=== PATIENT | female | born 1970 | race Caucasian/White ===

== ENCOUNTER → 2017-08-15 11:44 | Outpatient (CLI) | payer BC, MEDICARE, SELFPAY ==
--- NOTE | 2017-08-15 11:51 | BI_ITS ---
MAMMOGRAPHY - BILATERAL SCREENING REASON FOR EXAM: Female, 47 years old. Routine annual screening examination. PERTINENT HISTORY: Non-contributory. TECHNIQUE: Digital bilateral breast kusum (3D mammographic acquisition) in the CC and MLO projections. 2-D mediolateral oblique (MLO) and craniocaudad (CC) views of both breasts were obtained. CAD: Full Field Digital Mammography with Computer Added Detection was performed. COMPARISON: No comparison mammograms available at this time. If any prior films become available, an addendum to this report can be generated. FINDINGS: Breast Composition: There are scattered areas of fibroglandular density. There are no dominant masses or suspicious calcifications. Small bilateral benign appearing axillary lymph nodes. No other significant abnormalities are identified. BI/SCREENING MAMM (CAD), BILAT IMPRESSION: Negative screening mammogram. Yearly followup mammogram recommended. (A) ASSESSMENT CATEGORY: BIRADS Category 2: Benign. A letter regarding these results will be sent to the patient by the facility within 30 days. Approximately 10% of breast cancers are not detected by mammography. A normal mammogram should not delay biopsy of a clinically suspicious abnormality. [id number] Electronically Signed: Omar Cox MD at 14:32 EDT Tel [phone], Service support ,
== END ==
DX: Z12.31 Encounter for screening mammogram for malignant neoplasm of breast (principal)
CPT/HCPCS: 77063; 77067

== ENCOUNTER 2020-10-08 21:46 | Emergency (ER) | payer MEDICARE, SELFPAY ==
[2020-10-08 21:47] VITALS: BP 161/94; PULSE 59; RESP 16; TEMP 36.6; O2SAT 100; BMI 39.0
[2020-10-08 22:09] VITALS: BP 168/77; PULSE 60; PULSE 61; RESP 15; RESP 21; TEMP 36.6; O2SAT 100
--- NOTE | 2020-10-08 22:10 | EKG12_ITS ---
Test Reason : CP Blood Pressure : / mmHG Vent. Rate : 053 BPM Atrial Rate : 053 BPM P-R Int : 136 ms QRS Dur : 088 ms QT Int : 432 ms P-R-T Axes : 023 049 021 degrees QTc Int : 405 ms Sinus bradycardia Otherwise normal ECG Confirmed by PARDEEP PARMAR, SHANI ([id number]), editor magazine NIRMAL PINA ([id number]) on 10/11/2020 8:57:36 AM Referred By: TRACY Confirmed By:SHANI ROBERTO MD
--- NOTE | 2020-10-08 22:10 | CT_ITS ---
INDICATION: diffuse abd pain, n/v/d EXAMINATION: CT Abdomen And Pelvis W/ Contrast Injection TECHNIQUE: Helically acquired images were obtained of the abdomen and pelvis after IV contrast. A radiation dose optimization technique was used for this scan. IV Contrast dosage and agent: IV 100mL [id number]-300 Oral contrast: None. COMPARISON: None. FINDINGS: Visualized lung bases: Unremarkable Liver: Unremarkable Gallbladder: Unremarkable Spleen: Unremarkable Pancreas: Unremarkable Adrenal Glands: Unremarkable Kidneys: Unremarkable Vasculature: Unremarkable GI Tract: Unremarkable Lymphadenopathy: None Peritoneum: No ascites. Bladder: Unremarkable Reproductive organs: Unremarkable Bones/Soft tissues: Mild scattered degenerative changes of the visualized spine. CT/Abdomen/Pelvis W IV Cont ONLY IMPRESSION: No acute abnormalities in the abdomen or pelvis. Electronically Signed: Chris Lares MD at 23:15 EDT Tel , Service support ,
--- NOTE | 2020-10-08 22:11 | ED.VIS.GI ---
HPI HPI - GI History of Present Illness Chief Complaint: Chest Pain Informant: patient Abdominal Pain/Flank Pain Onset: Today Context: - (awoke w/ sx) Timing: Continuous Quality: - (pressure) Location: Epigastric (cross upper abd) Current Severity: Severe Maximum Severity: Severe Worsened by: Food (because it makes me vomit) Relieved by: Nothing (tried no meds except an Ativan) Nausea/Vomiting/Emesis GI Symptom: Positive for Nausea and Vomiting Onset: Today Quality: Positive for Nonbilious; Negative for Blood streaks, Coffee ground and Hematemesis Severity: Severe Diarrhea/Melena/Hematochezia GI Symptom: Positive for Diarrhea; Negative for Hematochezia Onset: - (chronic, since last November) Stool Quality: Positive for Watery, Black and BRB per rectum (rarely, only when wipes); Negative for Mucous Severity: Moderate (6-10x per day since november) Associated Symptoms Associated Symptoms: Negative for Dysuria, Frequency, Hematuria and Urgency Narrative Narrative: Patient with chronic intermittent lower abdominal cramping and diarrhea for the last 10-11 months, states today the abdominal pain is different in upper, pressure, going up into her mid chest, and radiating straight into her back. Pain preceded the vomiting. Has a history of chronically. She is scheduled for a colonoscopy trouble stopping vomiting when she starts. This is why she states she took an Ativan, she has been feeling anxious and panicky all day because of all of this. The diarrhea is no different, actually a little less than it has been in 2 weeks to work-up all of the Prior abdominal symptoms. [facility] Medical History (Updated 10/09/20 @ 00:[address] Jack James MD) DM type 2 (diabetes mellitus, type 2) History of neck pain HLD (hyperlipidemia) HTN (hypertension) Home Medications loratadine 10 mg PO DAILY PRN PRN 01/08/17 [History Last Taken Unknown] lorazepam 1 mg PO DAILY PRN PRN 01/08/17 [History Last Taken 01/08/17] dicyclomine 20 mg PO Q4H PRN PRN #20 capsule 10/09/20 [Rx Last Taken Unknown] metoclopramide HCl 10 mg PO 4X/DAY PRN #20 tab 10/09/20 [Rx Last Taken Unknown] Allergy/AdvReac Type Severity Reaction Status Date / Time Penicillins [PCN] Allergy Hives Verified 10/08/20 21:50 esomeprazole [From Nexium] AdvReac Other Verified 10/08/20 21:50 Surgical History (Updated 10/08/20 @ 22:28 by Niels Joseph) History of bunionectomy History of foot operation History of removal of ovarian cyst History of tonsillectomy History of tubal ligation Social History Smoking Status: Current every day smoker tobacco type: e-cigarettes ROS ROS ED Constitutional Constitutional ED: Denies chills or fever(s) Eyes Eyes: Denies change in vision or diplopia ENT ENT ED: Denies rhinorrhea or sore throat Cardiovascular Cardiovascular: Denies chest pain or palpitations Respiratory/Chest Respiratory/Chest: Denies cough or dyspnea Gastrointestinal Gastrointestinal: Reports abdominal pain, diarrhea, nausea and vomiting Genitourinary Genitourinary ED: Denies dysuria or hematuria Musculoskeletal Musculoskeletal: Reports back pain; Denies neck pain Integumentary Denies abscess or rash Neurologic Neurologic: Reports headache(s); Denies paresthesias or weakness Psychiatric Psychiatric: Reports anxiety; Denies suicidal thoughts EXAM Physical Exam Const Vital Signs: 10/08/20 21:47 10/08/20 22:09 10/09/20 00:00 Temperature 97.8 F 97.8 F 98 F Temperature Source Temporal Temporal Temporal Pulse Rate 59 L 61 89 Respiratory Rate 16 21 H 15 Blood Pressure 161/94 H 168/77 H 152/74 H Blood Pressure Mean 116 107 100 Pulse Ox 100 100 99 Oxygen Delivery Method Room Air Room Air Room Air Positive well nourished, well developed and obese General Appearance ED: well developed and NAD Nutritional Appearance: obese HEENT Reports moist mucous membranes normocephalic and atraumatic Eyes PERRL and EOMs intact bilaterally Neck full ROM, no lymphadenopathy and supple Resp normal respiratory effort and clear to auscultation bilaterally Cardio regular rate, regular rhythm and no murmurs GI non-distended Auscultation: hypoactive bowel sounds Palpation: soft and tender other (diffusely except suprapubic); Negative for guarding or rigid Back/Spine no CVA tenderness General Back: other FROM Extremity normal to inspection General Extremety ED: Negative for edema, pulses abnormal or tenderness General Extremity: Negative for edema or pulses abnormal Neuro oriented x3, CN's II-XII intact bilaterally and no sensory deficits noted Sensorium / Orientation: awake and alert Motor Exam: strength 5/5 throughout Psych mental status grossly normal and thought process normal Mood & Affect: anxious Skin no rashes or lesions noted and no wounds Rashes: no rashes MDM MDM MDM Narrative Medical decision making narrative: Mild leukocytosis, CT obtained and it is normal. Patient was medicated and feels much better on reevaluation. She is reassured, advised to follow-up for colonoscopy, as her pain is likely GI in etiology, she is prescribed dicyclomine and Reglan to use as needed she is comfortable with that plan. Lab Data Attestation: I reviewed the patient's lab results. Labs: Laboratory Results - last 24 hr 10/08/20 10/08/20 10/08/20 22:00 22:00 23:05 WBC 13.5 H RBC 4.66 Hgb 14.6 Hct 43.6 MCV 93.6 MCH 31.3 MCHC 33.5 RDW Std Deviation 46.5 H RDW Coeff of Joseph 13.6 Plt Count 320 MPV 10.7 Immature Gran % (Auto) 0.700 Neut % (Auto) 89.2 H Lymph % (Auto) 8.4 L Sequoyah % (Auto) 1.6 Eos % (Auto) 0.0 Baso % (Auto) 0.1 Absolute Neuts (auto) 12.1 H Absolute Lymphs (auto) 1.13 Nucleated RBC % 0 Sodium 140 Potassium 3.3 L Chloride 107 Carbon Dioxide 22.0 Anion Gap 11 BUN 12 Creatinine 0.88 Estim Creat Clear Calc 68.82 Est GFR (MDRD) Af Amer 87 Est GFR (MDRD) Non-Af 72 BUN/Creatinine Ratio 13.6 Glucose 147 H Calcium 9.2 Total Bilirubin 0.30 AST 14 L ALT 21 Alkaline Phosphatase 62 Troponin I High Sens 8.7 Total Protein 7.8 Albumin 3.7 Globulin 4.1 Albumin/Globulin Ratio 0.9 Lipase 48 L Urine Color Yellow Urine Clarity Clear Urine pH 5.0 Ur Specific Baxter 1.020 Urine Protein 15 H Urine Glucose (UA) 100 H Urine Ketones 150 A* Urine Occult Blood 25 H Urine Nitrite Negative Urine Bilirubin Negative Urine Urobilinogen Normal Ur Leukocyte Esterase Negative Urine RBC 0-5 SEEN Urine WBC 0 SEEN Ur Squamous Epith Cells 0 SEEN Urine Bacteria 1+ Urine Mucus 2+ Radiography Diagnostic Testing: Radiology Impression Abdomen/Pelvis CT 10/08/20 22:10 IMPRESSION: No acute abnormalities in the abdomen or pelvis. Electronically Signed: Chris Lares MD at 23:15 EDT Tel , Service support , EKG Initial EKG: Attestation: I personally reviewed and interpreted this EKG as follows: Interpretation: Sinus Rhythm and No Acute Injury Pattern Comments: normal ekg Discharge Plan Triage Chief Complaint: Chest Pain ED Provider: Jack James Dx/Rx/DC Orders Clinical Impression: Acute upper abdominal pain, Chest pain, non-cardiac Instructions: Abdominal Pain Prescriptions: New dicyclomine 10 MG capsule 20 mg PO Q4H PRN PRN (Reason: abdominal discomfort) Qty: 20 RF: 0 metoclopramide HCl [metoclopramide HCl] 10 MG tablet 10 mg PO 4X/DAY PRN (Reason: nausea and vomiting) Qty: 20 RF: 0 No Action lorazepam 1 MG tablet 1 mg PO DAILY PRN PRN (Reason: Anxiety) RF: 0 loratadine 10 MG capsule 10 mg PO DAILY PRN PRN (Reason: Allergies) RF: 0 Primary Care Provider: Ginny Camacho Referrals: Ginny Camacho, [Primary Care Provider] - 3-5 Days if not improving Disposition Disposition: Home, Self Care
[2020-10-08 22:16] LABS: Absolute Lymphocyte Count 1.13 X10^3/uL (0.83-4.51); Absolute Neutrophil Count 12.1 X10^3/uL (2.0-7.7); Basophil# 0.02 X10^3/uL; Basophil% 0.1 % (0-1); Hematocrit 43.6 % (37-47); Hemoglobin 14.6 g/dL (12.0-15.0); Lymphocyte # 1.13 X10^3/ul (0.83-4.51); Lymphocyte % 8.4 % (19-41); Mean Corp Hgb Conc 33.5 g/dL (32-36); Mean Corpuscular Hgb 31.3 pg (27.0-32.0); Mean Corpuscular Volume 93.6 fL (81-99); Mean Platelet Vol. 10.7 fl (6.2-12.0); Monocyte# 0.21 X10^3/uL; Monocyte% 1.6 % (0-10); NRBC Flagged by Analyzer 0 % (0-5); Neutrophil # 12.05 X10^3/uL (2.7-7.7); Neutrophil % 89.2 % (47-70); Platelet Count 320 K/mm3 (150-450); RBC Distribution Width CV 13.6 % (11.6-14.6); RBC Distribution Width SD 46.5 fl (35.1-43.9); Red Blood Count 4.66 M/mm3 (4.2-5.4); White Blood Count 13.5 K/mm3 (4.4-11.0)
[2020-10-08] MEDS: 0.9% Normal Saline 1,000 ML 1000 ML IV (22:19)
[2020-10-08] MEDS: Metoclopramide 10 MG/2 ML Vial IV (22:20)
[2020-10-08] MEDS: Morphine 4 MG/ML Syringe IV (22:22)
[2020-10-08] MEDS: Dicyclomine 20 MG/2 ML Vial IM (22:22)
[2020-10-08 22:31] LABS: ALB/GLOB Ratio 0.9 RATIO (0.9-2.4); AST(SGOT) 14 U/L (15-37); Alanine Aminotransfer ALT/SGPT 21 U/L (13-56); Albumin, Serum 3.7 g/dL (3.2-5.0); Alkaline Phosphatase 62 U/L (45-117); Anion Gap 11 (5-15); BUN 12 mg/dL (7-18); BUN/Creat Ratio 13.6 RATIO (10-20); Calcium,Total 9.2 mg/dL (8.5-10.1); Chloride 107 mmol/L (98-107); Creatinine, Serum 0.88 mg/dL (0.55-1.02); EST Glomerular Filtration Rate 72 mL/min (>60); Est Glom Filt Rate - Afr Amer 87 mL/min (>60); Estimated Creatinine Clearance 68.82 ml/min; Globulin 4.1 g/dL (2.2-4.2); Glucose 147 mg/dL (74-106); Lipase 48 U/L (73-393); Potassium 3.3 mmol/L (3.5-5.1); Protein, Total 7.8 g/dL (6.4-8.2); Sodium Level 140 mmol/L (136-145); Troponin-I HS 8.7 pg/mL (3.0-53.7)
[2020-10-08 23:12] LABS: Squamous Epithelial Cells - UA 0 SEEN /hpf (5-10); White Blood Cells 0 SEEN /hpf (0-5)
[2020-10-08 23:13] LABS: Color, Urine Yellow (Yellow); Glucose, Dipstick 100 mg/dl (Normal); Leukocyte Esterase-Dipstick Negative /ul (Negative); Nitrite-Dipstick Negative (Negative); Occult Blood-Urine 25 /ul (Negative); Protein-Dipstick 15 mg/dl (Negative); Urine Bilirubin Dipstick Negative (Negative); Urine Clarity Clear (Clear); Urine Urobilinogen Normal (Normal)
[2020-10-08 23:21] LABS: Ketone-Dipstick 150 mg/dl (Negative)
[2020-10-09] VITALS: BP 152/74; PULSE 89; RESP 15; RESP 16; TEMP 36.6; O2SAT 99
[2020-10-09 00:03] LABS: Bacteria 1+ /hpf (None Seen); Mucous, Urine 2+ /hpf (<or=2+); Red Blood Cells-Urine 0-5 SEEN /hpf (0-5)
[2020-10-09] MEDS: Ketorolac 30 MG/ML Syringe IV (01:40)
[2020-10-09] MEDS: traMADol 50 MG Tablet PO (01:41)
== END 2020-10-09 01:43 | disposition home or self-care (01) ==
PROVIDERS: Emergency Provider Emergency Medicine
DX: R10.13 Epigastric pain (principal); R07.89 Other chest pain; R11.2 Nausea with vomiting, unspecified; R19.7 Diarrhea, unspecified; E11.9 Type 2 diabetes mellitus without complications; I10 Essential (primary) hypertension; E78.5 Hyperlipidemia, unspecified; E66.9 Obesity, unspecified; Z79.899 Other long term (current) drug therapy; F17.290 Nicotine dependence, other tobacco product, uncomplicated
CPT/HCPCS: 74177; 80053; 81001; 83690; 84484; 85025; 93005; 96361; 96372; 96374; 96375; 99283; J7030; Q9967

== ENCOUNTER 2020-10-10 06:20 | Emergency (ER) | payer MEDICARE, MEDICAID, SELFPAY ==
[2020-10-10 06:22] VITALS: BP 159/88; PULSE 58; RESP 16; TEMP 35.8; O2SAT 96; BMI 40.0
--- NOTE | 2020-10-10 06:35 | ED.VIS.GI ---
HPI <Dr. Vladimir Chatterjee MD - Last Filed: 10/10/20 07:35> HPI - GI History of Present Illness Chief Complaint: Abd Pain Informant: patient and spouse/S.O. Abdominal Pain/Flank Pain Onset: Yesterday Context: Sudden Onset Timing: Continuous and Waxes and wanes Quality: Aching and Sharp Location: Epigastric Current Severity: Severe Maximum Severity: Severe Worsened by: Nothing Relieved by: Nothing Nausea/Vomiting/Emesis GI Symptom: Positive for Nausea (With dry heaves) Onset: Yesterday Diarrhea/Melena/Hematochezia GI Symptom: Negative for Diarrhea, Melena and Hematochezia Associated Symptoms Associated Symptoms: Negative for Dysuria, Frequency, Hematuria and Urgency Narrative Narrative: Patient is a middle-aged woman who has history of diarrhea and chronic lower abdominal pain who was seen Saturday morning for upper abdominal pain. She presents now because of nausea with dry heaves. She has history of anxiety and is treated with Ativan. She denies intolerance to greasy or fried foods. She denies history of cholelithiasis or pancreatitis. There is no family history of cholelithiasis. She denies cardiac or respiratory symptoms. She states the pain does radiate through to her back. She denies black or maroon-colored stool. She denies dysuria, frequency, urgency or hematuria. She denies history of renal ureterolithiasis. She apparently had chicken noodle soup yesterday. Nothing specific makes the pain worse. She states nothing makes the pain better. She is not aware of any precipitating factor. H&P from prior visit was read. Patient's work-up was remarkable for slightly elevated white count otherwise unremarkable. She does vape. She does smoke marijuana on a regular basis. Prior similar symptoms: Yes Recent Illness/Hospitalization: Yes [facility] <Dr. Vladimir Chatterjee MD - Last Filed: 10/10/20 07:35> [facility] Medical History DM type 2 (diabetes mellitus, type 2) History of neck pain HLD (hyperlipidemia) HTN (hypertension) Home Medications loratadine 10 mg PO DAILY PRN PRN 01/08/17 [History Last Taken Unknown] lorazepam 1 mg PO DAILY PRN PRN 01/08/17 [History Last Taken 01/08/17] dicyclomine 20 mg PO Q4H PRN PRN #20 capsule 10/09/20 [Rx Last Taken Unknown] metoclopramide HCl 10 mg PO 4X/DAY PRN #20 tab 10/09/20 [Rx Last Taken Unknown] Allergy/AdvReac Type Severity Reaction Status Date / Time Penicillins [PCN] Allergy Hives Verified 10/10/20 06:20 esomeprazole [From Nexium] AdvReac Other Verified 10/10/20 06:20 Surgical History History of bunionectomy History of foot operation History of removal of ovarian cyst History of tonsillectomy History of tubal ligation Social History (Updated 10/10/20 @ 06:[address] Vladimir Chatterjee MD) household members: significant other Smoking Status: Current every day smoker tobacco type: e-cigarettes alcohol intake: current alcohol intake frequency: holidays/special occasions only substance use type: marijuana ROS <Dr. Vladimir Chatterjee MD - Last Filed: 10/10/20 07:35> ROS ED Constitutional Constitutional ED: Denies chills, fever(s), subjective, sweats or weight loss ENT ENT ED: Denies ear pain, rhinorrhea or sore throat Cardiovascular Cardiovascular: Denies chest pain, palpitations or racing heartbeat Respiratory/Chest Respiratory/Chest: Reports cough and other Details: Coughing occurs after she dry heaves ; Denies dyspnea, dyspnea on exertion or sputum Gastrointestinal Gastrointestinal: Reports abdominal pain and nausea; Denies constipation, diarrhea or melena Genitourinary Genitourinary ED: Denies dysuria, hematuria or urinary frequency Musculoskeletal Musculoskeletal: Reports back pain and other Details: Pain is midline and deviates from the epigastrium. ; Denies arthralgias, myalgias or neck pain Integumentary Denies rash Neurologic Neurologic: Denies headache(s), paresthesias or weakness Endocrine Endocrinology: Denies polydipsia, polyphagia or polyuria Hematologic/Lymphatic Hematologic/Lymphatic: Denies easy bruising EXAM <Dr. Vladimir Chatterjee MD - Last Filed: 10/10/20 07:35> Physical Exam Const Vital Signs: 10/10/20 06:22 10/10/20 08:42 Temperature 96.5 F L Temperature Source Oral Pulse Rate 58 L 63 Respiratory Rate 16 14 Blood Pressure 159/88 H 151/78 H Blood Pressure Mean 111 102 Pulse Ox 96 99 Oxygen Delivery Method Room Air Nasal Cannula Oxygen Flow Rate (L/min) 4 Positive well nourished, well developed and obese General Appearance ED: well developed, pallor and other Patient begins to gag and dry heave then coughs. Nutritional Appearance: obese HEENT Reports moist mucous membranes normocephalic and atraumatic Eyes PERRL and EOMs intact bilaterally General Eye ED: Negative for pale conjunctiva or scleral icterus Neck no lymphadenopathy, supple and no JVD General: Negative for tenderness Resp normal respiratory effort and clear to auscultation bilaterally Cardio regular rate, regular rhythm, S1 normal heart sound, S2 normal heart sound and no murmurs GI non-distended and no masses; Negative for non-tender Auscultation: normoactive bowel sounds Palpation: soft and tender McBurney's point, Lugo's sign and other (Epigastric area.); Negative for guarding, rigid or rebound tenderness present Back/Spine no CVA tenderness Cervical Spine: Negative for cervical spine tenderness Thoracic Spine / Upper Back: Negative for thoracic spinal tenderness Extremity full ROM General Extremety ED: Yes edema General Extremity: edema Neuro CN's II-XII intact bilaterally Sensorium / Orientation: alert, oriented to person, oriented to place and oriented to time Psych mental status grossly normal Skin no wounds General Skin Exam: pallor; Negative for jaundice Lesions: no lesions Rashes: no rashes <Dr. Wu Drew DO - Last Filed: 10/10/20 09:52> Physical Exam Const Vital Signs: 10/10/20 06:22 10/10/20 08:42 Temperature 96.5 F L Temperature Source Oral Pulse Rate 58 L 63 Respiratory Rate 16 14 Blood Pressure 159/88 H 151/78 H Blood Pressure Mean 111 102 Pulse Ox 96 99 Oxygen Delivery Method Room Air Nasal Cannula Oxygen Flow Rate (L/min) 4 MDM <Dr. Vladimir Chatterjee MD - Last Filed: 10/10/20 07:35> [facility] MDM Narrative Medical decision making narrative: Patient has an inconsistent exam. With distraction she has either no pain or pain in different area. This may be anxiety related. This may represent peptic ulcer disease. CT of the abdomen was negative. Of note 25% of biliary disease is missed with a CAT scan. However, she has no tenderness in the right upper quadrant and has a negative Lugo sign. Patient was medicated with morphine and Zofran. Since she was imaged yesterday will not repeat today. Lab Data Attestation: I reviewed the patient's lab results. Lab results narrative: Count is elevated with no shift. White count was elevated yesterday. White count is not is elevated today. Hepatic and lipase are normal. Labs: Laboratory Results - last 24 hr 10/10/20 10/10/20 06:28 06:28 WBC 12.4 H RBC 4.62 Hgb 14.3 Hct 43.3 MCV 93.7 MCH 31.0 MCHC 33.0 RDW Std Deviation 47.9 H RDW Coeff of Joseph 13.8 Plt Count 326 MPV 10.8 Immature Gran % (Auto) 0.600 Neut % (Auto) 66.3 Lymph % (Auto) 26.4 Gregg % (Auto) 5.1 Eos % (Auto) 1.0 Baso % (Auto) 0.6 Absolute Neuts (auto) 8.2 H Absolute Lymphs (auto) 3.27 Nucleated RBC % 0 Total Bilirubin 0.30 Direct Bilirubin 0.08 AST 32 ALT 30 Alkaline Phosphatase 60 Troponin I High Sens 7.3 Total Protein 7.2 Albumin 3.7 Globulin 3.5 Lipase 82 Treatment and Re-Evaluation Comments:: She was informed of her laboratory results. Patient was informed that the cause of her pain is unknown. The epigastric pain and vomiting may be due to chronic marijuana use. She does admit to stress and anxiety. This may represent cyclic vomiting due to stress. The cyclic vomiting order set was ordered. Patient to be reevaluated and 2 to 4 hours. Case will be turned over to Dr. Drew. <Dr. Wu Drew, DO - Last Filed: 10/10/20 09:52> [facility] Narrative Medical decision making narrative: Patient signed out to me at 7 AM for monitoring. Patient had lab work drawn which showed a slight leukocytosis. Patient was reevaluated at 9 AM when she was sleeping comfortably. I spoke with her who stated that they had not filled the medications that were prescribed last time they were in the ED which was Reglan and dicyclomine. Patient at this time states that she is scared she might have to come back however she feels improved at this time. Patient was reevaluated again at 9:50 AM and is again sleeping comfortably. I feel she is safe to be discharged home. 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 Patient stable at discharge. Lab Data Attestation: I reviewed the patient's lab results. Labs: Laboratory Results - last 24 hr 10/10/20 10/10/20 06:28 06:28 WBC 12.4 H RBC 4.62 Hgb 14.3 Hct 43.3 MCV 93.7 MCH 31.0 MCHC 33.0 RDW Std Deviation 47.9 H RDW Coeff of Joseph 13.8 Plt Count 326 MPV 10.8 Immature Gran % (Auto) 0.600 Neut % (Auto) 66.3 Lymph % (Auto) 26.4 Gregg % (Auto) 5.1 Eos % (Auto) 1.0 Baso % (Auto) 0.6 Absolute Neuts (auto) 8.2 H Absolute Lymphs (auto) 3.27 Nucleated RBC % 0 Total Bilirubin 0.30 Direct Bilirubin 0.08 AST 32 ALT 30 Alkaline Phosphatase 60 Troponin I High Sens 7.3 Total Protein 7.2 Albumin 3.7 Globulin 3.5 Lipase 82 Discharge Plan Triage Chief Complaint: Abd Pain ED Provider: Wu Drew Dx/Rx/DC Orders Instructions: ED Abdominal Pain Unkn Cause Fem Prescriptions: No Action lorazepam 1 MG tablet 1 mg PO DAILY PRN PRN (Reason: Anxiety) RF: 0 loratadine 10 MG capsule 10 mg PO DAILY PRN PRN (Reason: Allergies) RF: 0 dicyclomine 10 MG capsule 20 mg PO Q4H PRN PRN (Reason: abdominal discomfort) Qty: 20 RF: 0 metoclopramide HCl [metoclopramide HCl] 10 MG tablet 10 mg PO 4X/DAY PRN (Reason: nausea and vomiting) Qty: 20 RF: 0 Primary Care Provider: Ginny Camacho Referrals: Ginny Camacho, [Primary Care Provider] - Disposition Disposition: Home, Self Care
[2020-10-10] MEDS: Ondansetron 4 MG/2 ML Vial IV ×2 (06:39→08:39)
[2020-10-10] MEDS: Morphine 4 MG/ML Syringe IV (06:39)
[2020-10-10 06:48] LABS: Absolute Lymphocyte Count 3.27 X10^3/uL (0.83-4.51); Absolute Neutrophil Count 8.2 X10^3/uL (2.0-7.7); Basophil# 0.07 X10^3/uL; Basophil% 0.6 % (0-1); Eosinophil# 0.12 X10^3/uL; Hematocrit 43.3 % (37-47); Hemoglobin 14.3 g/dL (12.0-15.0); Lymphocyte # 3.27 X10^3/ul (0.83-4.51); Lymphocyte % 26.4 % (19-41); Mean Corpuscular Volume 93.7 fL (81-99); Mean Platelet Vol. 10.8 fl (6.2-12.0); Monocyte# 0.63 X10^3/uL; Monocyte% 5.1 % (0-10); NRBC Flagged by Analyzer 0 % (0-5); Neutrophil # 8.23 X10^3/uL (2.7-7.7); Neutrophil % 66.3 % (47-70); Platelet Count 326 K/mm3 (150-450); RBC Distribution Width CV 13.8 % (11.6-14.6); RBC Distribution Width SD 47.9 fl (35.1-43.9); Red Blood Count 4.62 M/mm3 (4.2-5.4); White Blood Count 12.4 K/mm3 (4.4-11.0)
[2020-10-10 06:57] LABS: AST(SGOT) 32 U/L (15-37); Alanine Aminotransfer ALT/SGPT 30 U/L (13-56); Albumin, Serum 3.7 g/dL (3.2-5.0); Alkaline Phosphatase 60 U/L (45-117); Bilirubin, Direct 0.08 mg/dL (0.00-0.30); Globulin 3.5 g/dL (2.2-4.2); Lipase 82 U/L (73-393); Protein, Total 7.2 g/dL (6.4-8.2); Troponin-I HS 7.3 pg/mL (3.0-53.7)
[2020-10-10] MEDS: Famotidine 200 MG/20 ML MDV 20 MG in 0.9% Normal Saline (Pres. free 8 ML 300 MG IV (07:00)
[2020-10-10] MEDS: LORazepam 2 MG/ML Syringe 0.5 MG IV (08:39)
[2020-10-10 08:42] VITALS: BP 151/78; PULSE 63; RESP 14; O2SAT 99
[2020-10-10 09:57] VITALS: BP 158/89; PULSE 78; RESP 14; O2SAT 98
== END 2020-10-10 09:58 | disposition home or self-care (01) ==
PROVIDERS: Emergency Medicine; Emergency Provider Student in an Organized Health Care Education/Training Program
DX: R10.13 Epigastric pain (principal); R10.10 Upper abdominal pain, unspecified; R19.7 Diarrhea, unspecified; R10.30 Lower abdominal pain, unspecified; G89.29 Other chronic pain; E11.9 Type 2 diabetes mellitus without complications; I10 Essential (primary) hypertension; E78.5 Hyperlipidemia, unspecified; F17.290 Nicotine dependence, other tobacco product, uncomplicated; E66.9 Obesity, unspecified; Z79.899 Other long term (current) drug therapy
CPT/HCPCS: 80076; 83690; 84484; 85025; 96365; 96375; 96376; 99283; J7050; A4216; J2405; J3490

== ENCOUNTER 2021-04-19 16:40 | Emergency (ER) | payer MEDICARE, MEDICAID, SELFPAY ==
[2021-04-19 16:41] VITALS: BP 166/73; PULSE 70; RESP 16; TEMP 36.4; O2SAT 99; BMI 35.7
--- NOTE | 2021-04-19 16:50 | ED.RN ---
PT STATES I'M OUT OF HERE, NOT WAITING TO BE SEEN. AMBULATED OUT OF DEPT WITHOUT DIFFICULTY.
== END 2021-04-19 16:50 | disposition left against medical advice (07) ==
LOC: ED 18:17
DX: Z53.21 Procedure and treatment not carried out due to patient leaving prior to being seen by health care provider (principal)

== ENCOUNTER 2022-07-11 00:36 | Emergency (ER) | payer MEDICARE, MEDICAID, SELFPAY ==
[2022-07-11 00:40] VITALS: BP 158/89; PULSE 62; RESP 20; TEMP 36.6; O2SAT 99; BMI 36.6
--- NOTE | 2022-07-11 00:52 | ED.VIS.BACK ---
HPI History of Present Illness Chief Complaint: Back Informant: patient Onset/Context/Timing Onset: Yesterday Context: Gradual Onset Timing: Continuous Quality: Sharp and Aching Location: Lumbar, Buttock and Left Leg Worsened by: improves with Movement and Ambulation Relieved by: Nothing Associated Symptoms Associated Symptoms: Radiation to Left Leg and Abdominal Pain; Negative for Numbness, Tingling, Radiation to Right Leg, Fever, Dysuria, Unable to Ambulate, Unable to Transfer, Urinary Retention, Urinary Incontinence, Constipation or Fecal Incontinence Narrative Narrative: Patient presents with back pain that began yesterday. Patient states it came on gradually. Patient states it has been constant. Patient states the pain is over the lower lumbar area, worse on the left. Patient states pain radiates into her left buttock and left lower extremity. Patient denies any bowel or bladder changes. Patient denies any saddle anesthesia. Patient denies any dysuria or hematuria. Patient states her pain does radiate into her abdomen but denies any vomiting. Patient admits to some nausea. [facility] Medical History DM type 2 (diabetes mellitus, type 2) History of neck pain HLD (hyperlipidemia) HTN (hypertension) Home Medications cholecalciferol (vitamin D3) 10 mcg (400 unit) tablet (Vitamin D3) 07/11/22 [History Last Taken Unknown] naproxen 500 mg tablet (Naprosyn) 500 mg PO BID PRN pain #20 tabs 07/11/22 [Rx Last Taken Unknown] omega 8-qdt-xhe-fish oil 60 mg-90 mg-500 mg capsule (Fish Oil) cap PO 07/11/22 [History Last Taken Unknown] Allergy/AdvReac Type Severity Reaction Status Date / Time Penicillins [PCN] Allergy Hives Verified 04/19/21 16:43 esomeprazole [From Nexium] AdvReac Other Verified 04/19/21 16:43 Surgical History History of bunionectomy History of foot operation History of removal of ovarian cyst History of tonsillectomy History of tubal ligation Social History household members: significant other Smoking Status: Current every day smoker tobacco type: e-cigarettes alcohol intake: current alcohol intake frequency: holidays/special occasions only substance use type: marijuana ROS ROS ED Constitutional Constitutional ED: Reports chills; Denies fever(s) Eyes Eyes: Denies blurry vision or change in vision ENT ENT ED: Reports rhinorrhea; Denies sore throat Cardiovascular Cardiovascular: Denies chest pain or palpitations Respiratory/Chest Respiratory/Chest: Reports cough; Denies dyspnea Gastrointestinal Gastrointestinal: Reports abdominal pain and nausea; Denies vomiting Genitourinary Genitourinary ED: Denies dysuria or hematuria Musculoskeletal Musculoskeletal: Reports back pain; Denies neck pain Integumentary Denies abscess or rash Neurologic Neurologic: Reports headache(s); Denies weakness Allergic/Immunologic Allergic/Immunologic ED: Denies mouth swelling or urticaria EXAM Physical Exam Const Vital Signs: 07/11/22 00:40 Temperature 97.8 F Temperature Source Oral Pulse Rate 62 Respiratory Rate 20 H Blood Pressure 158/89 H Blood Pressure Mean 112 Pulse Ox 99 Oxygen Delivery Method Room Air Positive well nourished, well developed and obese General Appearance ED: well developed and NAD Nutritional Appearance: obese HEENT Reports moist mucous membranes Neck supple and no JVD GI normal to inspection, nondistended, normoactive bowel sounds, soft to palpation and non-tender Back/Spine normal to inspection Back/Spine Narrative: There is tenderness over the left lumbar paraspinal muscles. There is no midline tenderness. There is no bony crepitance or step-off. There is some mild left CVA tenderness. There is no abdominal tenderness. General Back: CVA tenderness left Lumbar Spine / Lower Back: ROM limited and straight leg raise negative bilaterally Extremity normal to inspection General Extremety ED: Negative for edema or tenderness General Extremity: Negative for edema Neuro oriented x3 and no sensory deficits noted Sensorium / Orientation: alert Motor Exam: strength 5/5 throughout Deep Tendon Reflexes: Rt Patellar (L4): 2+, Lt Patellar (L4): 2+, Rt Ankle (S1): 2+ and Lt Ankle (S1): 2+ Deep Tendon Reflexes Back: Rt Patellar (L4): 2+, Lt Patellar (L4): 2+, Rt Ankle (S1): 2+ and Lt Ankle (S1): 2+ MDM MDM MDM Narrative Medical decision making narrative: Differential diagnosis includes lumbosacral strain, ureteral calculus, and lumbar radiculopathy. Urinalysis will be obtained to assess for urinary tract infection and hematuria. CT scan of the flank will be obtained to assess for ureteral calculus. Lab Data Attestation: I reviewed the patient's lab results. Lab results narrative: Urinalysis was reviewed. There is no evidence of urinary tract infection or hematuria. Labs: Laboratory Results - last 24 hr 07/11/22 01:35 Urine Color Yellow Urine Clarity Clear Urine pH 5.0 Ur Specific [place] 1.025 Urine Protein 15 H Urine Glucose (UA) Normal Urine Ketones 15 H Urine Occult Blood 10 H Urine Nitrite Negative Urine Bilirubin Negative Urine Urobilinogen Normal Ur Leukocyte Esterase Negative Urine RBC 0 SEEN Urine WBC 0 SEEN Ur Squamous Epith Cells 0-5 SEEN Urine Bacteria RARE Urine Mucus 0 SEEN Radiography Diagnostic Testing: Clinical Impression(s) from Imaging Studies Abdomen/Pelvis CT 07/11/22 00:55 IMPRESSION: 1. Slight pericardial effusion. 2. No acute abdominal pelvic abnormality. Electronically Signed: Tay Stinson MD at 2:26 EDT , CT scan of the abdomen and pelvis was obtained. There is no acute abdominal or pelvic abnormality. There is no free air or free fluid. There is no evidence of ureteral calculus or hydronephrosis. There is a slight pericardial effusion. This was interpreted by the radiologist was also independently reviewed by myself. Treatment and Re-Evaluation Narrative: Patient was given a dose of morphine and Zofran here. Patient is feeling better on reevaluation. Patient was advised of her findings. Patient was given a prescription for Naprosyn. Patient was instructed to use ice to the area. Patient was instructed to follow-up with her primary care physician in 5 to 7 days. Patient understood and was agreeable with the plan. All questions were answered. Discharge Plan Triage Chief Complaint: Back Other Complaint: Lower Extremity Injury ED Provider: Ephraim Soto Dx/Rx/DC Orders Clinical Impression: Acute low back pain, Obesity (BMI 30-39.9) Instructions: ED Back Sprain/Strain Prescriptions: New naproxen [Naprosyn] 500 mg tablet 500 mg PO BID PRN (Reason: pain) Qty: 20 0RF No Action cholecalciferol (vitamin D3) [Vitamin D3] 10 mcg (400 unit) tablet omega 7-duv-gmk-fish oil [Fish Oil] 60-90-500 mg capsule PO Primary Care Provider: Ginny Camacho Referrals: Ginny Camacho DO [Primary Care Provider] - 5-7 Days Disposition Disposition: Home, Self Care
--- NOTE | 2022-07-11 00:55 | CT_ITS ---
EXAM: CT ABDOMEN AND PELVIS WITHOUT INTRAVENOUS CONTRAST CLINICAL INDICATION: Left flank pain TECHNIQUE: Helically acquired images were obtained of the abdomen and pelvis without intravenous contrast. This CT exam was performed using one or more of the following dose reduction techniques: automated exposure control, adjustment of the mA and/or kV according to patient size, and/or use of iterative reconstruction technique. This report was created using [employer] report generation technology. RADIATION DOSE: CTDIvol = 15.17 mGy, DLP = 796.00 mGy-cm. COMPARISON: 10/08/2020. FINDINGS: LOWER THORAX: Slight pericardial effusion. ABDOMEN: LIVER: Unremarkable. Homogeneous. GALLBLADDER AND BILE DUCTS: Unremarkable. No calcified gallstones. No gallbladder distention or wall edema. No intra- or extrahepatic biliary ductal dilation. PANCREAS: Unremarkable. No focal cystic mass. SPLEEN: Unremarkable. Normal size without focal cystic or solid mass. ADRENALS: Unremarkable. No nodules. KIDNEYS AND URETERS: Unremarkable. Normal renal size and position. No hydronephrosis. STOMACH AND BOWEL: Unremarkable. No stomach or bowel distention. No focal inflammatory change. PELVIS: APPENDIX: Normal appendix. BLADDER: Unremarkable. REPRODUCTIVE: Unremarkable as visualized. No mass. ABDOMEN and PELVIS: INTRAPERITONEAL SPACE: Unremarkable. No ascites or other fluid collection. No free air. BONES/JOINTS: Unremarkable. No suspicious lytic or blastic abnormality. SOFT TISSUES: Unremarkable. No discrete abdominal or pelvic wall hernia. VASCULATURE: Unremarkable. Abdominal aorta is non-dilated. LYMPH NODES: Unremarkable. No enlarged lymph nodes. CT/Abdomen/Pelvis without Cont IMPRESSION: 1. Slight pericardial effusion. 2. No acute abdominal pelvic abnormality. Electronically Signed: Tay Stinson MD at 2:26 EDT ,
[2022-07-11] MEDS: Morphine 4 MG/ML Syringe IV (01:12)
[2022-07-11] MEDS: Ondansetron 4 MG/2 ML Vial IV (01:12)
[2022-07-11 01:47] LABS: Mucous, Urine 0 SEEN /hpf (<or=2+); Red Blood Cells-Urine 0 SEEN /hpf (0-5); White Blood Cells 0 SEEN /hpf (0-5)
[2022-07-11 01:48] LABS: Color, Urine Yellow (Yellow); Glucose, Dipstick Normal (Normal); Ketone-Dipstick 15 mg/dl (Negative); Leukocyte Esterase-Dipstick Negative /ul (Negative); Nitrite-Dipstick Negative (Negative); Occult Blood-Urine 10 /ul (Negative); Protein-Dipstick 15 mg/dl (Negative); Specific Gravity, Urine 1.025 (1.002-1.030); Urine Bilirubin Dipstick Negative (Negative); Urine Clarity Clear (Clear); Urine Urobilinogen Normal (Normal)
[2022-07-11 01:54] LABS: Bacteria RARE /hpf (None Seen); Squamous Epithelial Cells - UA 0-5 SEEN /hpf (5-10)
[2022-07-11 02:50] VITALS: BP 120/82; PULSE 64; RESP 15; O2SAT 100
== END 2022-07-11 03:12 | disposition home or self-care (01) ==
PROVIDERS: Emergency Provider Emergency Medicine; Visit Provider Emergency Medicine
DX: M54.50 Low back pain, unspecified (principal); E11.9 Type 2 diabetes mellitus without complications; E66.9 Obesity, unspecified; R11.0 Nausea; I10 Essential (primary) hypertension; E78.5 Hyperlipidemia, unspecified; F17.290 Nicotine dependence, other tobacco product, uncomplicated; R51.9 Headache, unspecified
CPT/HCPCS: 74176; 81001; 96374; 96375; 99282; J2405

== ENCOUNTER → 2023-10-10 | Outpatient (CLI) | payer MEDICARE, MEDICAID, SELFPAY ==
--- NOTE | 2023-10-10 12:18 | RAD_ITS ---
STUDY: X-RAY - LEFT KNEE REASON FOR EXAM: Female, 53 years old. Pain. TECHNIQUE: 4 views of the left knee. COMPARISON: None. FINDINGS: Normal visualized distal femur. Normal visualized proximal tibia and fibula. Normal proximal tibiofibular articulation. There is no demonstrated fracture. Normal medial femorotibial compartment. Normal lateral femorotibial compartment. Normal patellofemoral articulation. There is a small joint effusion. The soft tissue structures are unremarkable. RAD/Knee 4 or More Views IMPRESSION: Small joint effusion. No demonstrated fracture. Electronically Signed: Ryan Rivas MD at 10:39 EDT ,
== END | disposition home or self-care (01) ==
LOC: RAD 12:13
PROVIDERS: Referring Provider Anesthesiology; Visit Provider Anesthesiology
DX: M25.562 Pain in left knee (principal)
CPT/HCPCS: 73564

== ENCOUNTER 2023-10-18 11:28 | Emergency (ER) | payer MEDICARE, MEDICAID, SELFPAY ==
[2023-10-18 11:28] VITALS: BP 178/88; PULSE 48; RESP 14; TEMP 36.8; O2SAT 98
[2023-10-18 11:31] VITALS: BMI 39.3
--- NOTE | 2023-10-18 11:43 | EDS_ITS ---
HPI <COLT Iniguez - Last Filed: 10/18/23 16:21> History of Present Illness Chief Complaint: Abd Pain Narrative Narrative: 53-year-old female with no significant past medical history states she has had vomiting since 6:30 AM this morning. She had not eaten prior to this so she is mostly spitting up phlegm and bile. The dry heaving is causing her abdominal wall muscles to feel sore but she does not have overt abdominal pain. She had 2-3 formed bowel movements today and denies melena or hematochezia. No fever or chills. She denies eating anything out of the ordinary yesterday. No recent alcohol use. She smokes marijuana daily. She states she gets vomiting episodes about once per year and is not sure why. She had a colonoscopy in 2020 showing microscopic colitis due to overuse of NSAIDs but she no longer takes these. Abdominal surgical history includes laparoscopic ovarian cyst removal and tubal ligation [facility] <COLT Iniguez - Last Filed: 10/18/23 16:21> [facility] Medical History DM type 2 (diabetes mellitus, type 2) History of neck pain HLD (hyperlipidemia) HTN (hypertension) Home Medications ?Medication ?Instructions ?Recorded ?Last Taken ?Type cholecalciferol (vitamin D3) 10 07/11/22 Unknown History mcg (400 unit) tablet (Vitamin D3) naproxen 500 mg tablet (Naprosyn) 500 mg PO BID PRN pain #20 tabs 07/11/22 Unknown Rx omega 9-wjn-ghu-fish oil 60 mg-90 cap PO 07/11/22 Unknown History mg-500 mg capsule (Fish Oil) dicyclomine 20 mg tablet 20 mg PO BID PRN abdominal pain 10/18/23 Unknown Rx #12 tabs promethazine 25 mg tablet 25 mg PO Q6H PRN nausea and 10/18/23 Unknown Rx vomiting #12 tabs Allergy/AdvReac Type Severity Reaction Status Date / Time Penicillins (PCN) Allergy Hives Verified 10/18/23 11:28 esomeprazole (From Nexium) AdvReac Other Verified 10/18/23 11:28 Surgical History History of bunionectomy History of foot operation History of removal of ovarian cyst History of tonsillectomy History of tubal ligation Social History household members: significant other Smoking Status: Current every day smoker tobacco type: e-cigarettes alcohol intake: current alcohol intake frequency: holidays/special occasions only substance use type: marijuana ROS <COLT Iniguez - Last Filed: 10/18/23 16:21> ROS ED ROS Narrative Constitutional: Negative for fever, chills, malaise. CVS: Negative for chest pain. Respiratory: Negative for shortness of breath. GI: Positive for nausea, vomiting. Negative for abdominal pain, diarrhea, constipation, melena, hematochezia. : Negative for dysuria, hematuria or frequency. EXAM <COLT Iniguez - Last Filed: 10/18/23 16:21> Physical Exam Narrative Exam Narrative: CONST: Patient sitting in no acute distress. EYES: Normal inspection. NECK: Normal inspection. RESP: No respiratory distress, CTAB. CVS: Regular rate and rhythm, no murmur, no gallop. ABD: Soft and nontender, no guarding or rebound, nondistended, no hepatosplenomegaly. SKIN: Color normal, no rash, warm, dry, intact. EXTREMITIES: Normal appearance, no pedal edema. NEURO: Alert and answering questions appropriately. PSYCH: Normal affect. Const Vital Signs: 10/18/23 11:28 10/18/23 13:28 10/18/23 15:00 Temperature 98.3 F Temperature Source Temporal Pulse Rate 48 L 48 L 57 L Respiratory Rate 14 18 20 H Blood Pressure 178/88 H 173/90 H 160/94 H Blood Pressure Mean 118 117 116 Pulse Ox 98 100 100 Oxygen Delivery Method Room Air Room Air Room Air 10/18/23 16:07 Temperature 98 F Temperature Source Pulse Rate 54 L Respiratory Rate 18 Blood Pressure 130/99 H Blood Pressure Mean 109 Pulse Ox 98 Oxygen Delivery Method <Dr. Vladimir Chatterjee MD - Last Filed: 10/18/23 17:00> Physical Exam Const Vital Signs: 10/18/23 11:28 10/18/23 13:28 10/18/23 15:00 Temperature 98.3 F Temperature Source Temporal Pulse Rate 48 L 48 L 57 L Respiratory Rate 14 18 20 H Blood Pressure 178/88 H 173/90 H 160/94 H Blood Pressure Mean 118 117 116 Pulse Ox 98 100 100 Oxygen Delivery Method Room Air Room Air Room Air 10/18/23 16:07 Temperature 98 F Temperature Source Pulse Rate 54 L Respiratory Rate 18 Blood Pressure 130/99 H Blood Pressure Mean 109 Pulse Ox 98 Oxygen Delivery Method [facility] <COLT Iniguez - Last Filed: 10/18/23 16:21> [facility] Narrative Medical decision making narrative: Patient presents with acute nausea and vomiting that started this morning. She has periumbilical discomfort that started after vomiting. She appears well and nontoxic. She is hypertensive with stable vital signs. She has a normal cardiopulmonary exam and soft, nontender abdomen with no peritoneal signs. Since she has a history of diabetes and is no longer on medications a BMP was checked and is overall unremarkable. Glucose 121. No evidence of MARV. After I V fluids and Zofran she felt better until she tried to drink some water and then vomited again so was ordered IV Reglan and Benadryl. She also complained of abdominal discomfort but on serial exams her abdomen is soft with no reproducible tenderness. After second antiemetic, Pepcid, and Bentyl she is feeling better easily tolerating water in the emergency department. I do not think a CT scan is indicated at this time. She states that oral Zofran does not work so I prescribed p.o. Phenergan and Bentyl, recommended a clear liquid diet transition to bland as tolerated, and discussed she should return if symptoms worsen. She was discharged in stable condition. I have personally performed a face to face assessment of the patient and have reviewed the MITUL Note. I performed a substantive portion of the visit including all aspects of the following. My leone findings include: History is remarkable for nausea and vomiting started this morning. She vomited 5 times. Denies blood or coffee-ground emesis. She states this happens about once a year. She has history of microscopic colitis found on colonoscopy. She has history of diabetes and hypertension. She states she is present on no meds. She was on medicine for GERD which she discontinued. She denies diarrhea. She denies black or maroon stool. She does complain of pain that is localized to the umbilicus. There is no radiation. She states she has chills all of a sudden and sweats. Exam is remarkable for elevated blood pressure and bradycardia. Patient was actively vomiting as I entered the room. Patient is flushed. HEENT is unremarkable. Lungs are clear to auscultation. Heart is regular. There is no murmur, gallop or rub. Abdomen is remarkable for minimal periumbilical pain. Is no guarding. No findings. There is no paraspinal megaly. Medical Decision Making because of her history of diabetes and hypertension will obtain BMP to assess glucose, anion gap, renal function. IV was established and will treat her nausea and vomiting with Zofran. Other additions or changes: [None] Lab Data Attestation: I reviewed the patient's lab results. Labs: Laboratory Results - last 24 hr 10/18/23 11:53 Sodium 141 Potassium 4.0 Chloride 110 H Carbon Dioxide 23.0 Anion Gap 8 BUN 11 Creatinine 0.88 Estim Creat Clear Calc 86.86 Est GFR (MDRD) Af Amer 86 Est GFR (MDRD) Non-Af 71 BUN/Creatinine Ratio 12.5 Glucose 121 H Calcium 9.5 <Dr. Vladimir Chatterjee MD - Last Filed: 10/18/23 17:00> [facility] Narrative Medical decision making narrative: Patient presents with acute nausea and vomiting that started this morning. She has periumbilical discomfort that started after vomiting. She appears well and nontoxic. She is hypertensive with stable vital signs. She has a normal cardiopulmonary exam and soft, nontender abdomen with no peritoneal signs. Since she has a history of diabetes and is no longer on medications a BMP was checked and is overall unremarkable. Glucose 121. No evidence of MARV. After IV fluids and Zofran she felt better until she tried to drink some water and then vomited again so was ordered IV Reglan and Benadryl. She also complained of abdominal discomfort but on serial exams her abdomen is soft with no reproducible tenderness. After second antiemetic, Pepcid, and Bentyl she is feeling better easily tolerating water in the emergency department. I do not think a CT scan is indicated at this time. She states that oral Zofran does not work so I prescribed p.o. Phenergan and Bentyl, recommended a clear liquid diet transition to bland as tolerated, and discussed she should return if symptoms worsen. She was discharged in stable condition. I have personally performed a face to face assessment of the patient and have reviewed the MITUL Note. I performed a substantive portion of the visit including all aspects of the following. My leone findings include: History is remarkable for nausea and vomiting started this morning. She vomited 5 times. Denies blood or coffee-ground emesis. She states this happens about once a year. She has history of microscopic colitis found on colonoscopy. She has history of diabetes and hypertension. She states she is present on no meds. She was on medicine for GERD which she discontinued. She denies diarrhea. She denies black or maroon stool. She does complain of pain that is localized to the umbilicus. There is no radiation. She states she has chills all of a sudden and sweats. Exam is remarkable for elevated blood pressure and bradycardia. Patient was actively vomiting as I entered the room. Patient is flushed. HEENT is unremarkable. Lungs are clear to auscultation. Heart is regular. There is no murmur, gallop or rub. Abdomen is remarkable for minimal periumbilical pain. Is no guarding. No findings. There is no paraspinal megaly. Medical Decision Making because of her history of diabetes and hypertension will obtain BMP to assess glucose, anion gap, renal function. IV was established and will treat her nausea and vomiting with Zofran. Other additions or changes: Patient did pass p.o. challenge. She was discharged to home. Lab Data Labs: Laboratory Results - last 24 hr 10/18/23 11:53 Sodium 141 Potassium 4.0 Chloride 110 H Carbon Dioxide 23.0 Anion Gap 8 BUN 11 Creatinine 0.88 Estim Creat Clear Calc 86.86 Est GFR (MDRD) Af Amer 86 Est GFR (MDRD) Non-Af 71 BUN/Creatinine Ratio 12.5 Glucose 121 H Calcium 9.5 Treatment and Re-Evaluation :: I was informed at approximately 1538 that patient passed p.o. challenge. Plan is to discharge to home. Patient does not need imaging. Discharge Plan Triage Chief Complaint: Abd Pain ED Midlevel Provider: Annette Castorena ED Provider: Vladimir Chatterjee Dx/Rx/DC Orders Clinical Impression: Nausea and vomiting, Periumbilical abdominal pain, Acute dehydration, Bradycardia Instructions: ED Vomiting (Adult) Prescriptions: New promethazine 25 mg tablet 25 mg PO Q6H PRN (Reason: nausea and vomiting) Qty: 12 0RF dicyclomine 20 mg tablet 20 mg PO BID PRN (Reason: abdominal pain) Qty: 12 0RF No Action cholecalciferol (vitamin D3) [Vitamin D3] 10 mcg (400 unit) tablet omega 7-kts-ksl-fish oil [Fish Oil] 60-90-500 mg capsule PO naproxen [Naprosyn] 500 mg tablet 500 mg PO BID PRN (Reason: pain) Qty: 20 0RF Primary Care Provider: Care Physician,No Primary Referrals: Care Physician,No Primary [Primary Care Provider] - Activity Restrictions/Additional Instructions: Use the nausea medication as needed. Dicyclomine is for the abdominal discomfort and cramping. You can also take Tylenol. Drink clear fluids till the day and then gradually reintroduce a bland diet as her symptoms improve. Return to the ER if symptoms worsen. Print Language: Kittitian Disposition Disposition: Home, Self Care Discharge Date/Time: 10/18/23 16:07
[2023-10-18] MEDS: Ondansetron 4 MG/2 ML Vial IV (11:46)
[2023-10-18] MEDS: 0.9% Normal Saline (1000mL) 1,000 ML 999 ML IV (11:49)
[2023-10-18 12:22] LABS: Anion Gap 8 (5-15); BUN 11 mg/dL (7-18); BUN/Creat Ratio 12.5 RATIO (10-20); Calcium,Total 9.5 mg/dL (8.5-10.1); Chloride 110 mmol/L (98-107); Creatinine, Serum 0.88 mg/dL (0.55-1.02); EST Glomerular Filtration Rate 71 mL/min (>60); Est Glom Filt Rate - Afr Amer 86 mL/min (>60); Estimated Creatinine Clearance 86.86 ml/min; Glucose 121 mg/dL (74-106); Sodium Level 141 mmol/L (136-145)
[2023-10-18 13:28] VITALS: BP 173/90; PULSE 48; RESP 18; O2SAT 100
[2023-10-18] MEDS: DiphenhydrAMINE 50 MG/ML Syringe 25 MG IV (13:29)
[2023-10-18] MEDS: Metoclopramide 10 MG/2 ML Vial 5 MG IV (13:30)
[2023-10-18 15:00] VITALS: BP 160/94; PULSE 57; RESP 20; O2SAT 100
[2023-10-18] MEDS: Famotidine 200 MG/20 ML MDV 20 MG in 0.9% Normal Saline (Pres. free 8 ML 300 MG IV (15:32)
[2023-10-18] MEDS: Dicyclomine 10 MG Capsule 20 MG PO (15:32)
[2023-10-18 16:07] VITALS: BP 130/99; PULSE 54; RESP 18; TEMP 36.6; O2SAT 98
== END 2023-10-18 16:07 | disposition home or self-care (01) ==
PROVIDERS: Physician Assistant; Emergency Provider Emergency Medicine; Visit Provider Emergency Medicine
DX: R11.2 Nausea with vomiting, unspecified (principal); E11.9 Type 2 diabetes mellitus without complications; E86.0 Dehydration; R10.33 Periumbilical pain; R00.1 Bradycardia, unspecified; K21.9 Gastro-esophageal reflux disease without esophagitis; I10 Essential (primary) hypertension; E78.5 Hyperlipidemia, unspecified; Z79.899 Other long term (current) drug therapy; F17.290 Nicotine dependence, other tobacco product, uncomplicated
CPT/HCPCS: 80048; 96361; 96374; 96375; 99283; J7030; A4216; J2405; J3490

== ENCOUNTER 2023-11-01 09:30 | Outpatient (RCR) | payer MEDICARE, MEDICAID, SELFPAY ==
--- NOTE | 2023-09-30 09:50 | HP.PTEVAL_ITS ---
Patient's Visit Information Visit Information Visit Information: JULIUS SIDDIQUI is a 53 year old F referred to Physical Therapy by Dr. Marvin Carlos MD with a diagnosis of L hip pain, lumbar sponylosis. Date of Evaluation: 09/30/23 Physical Therapist: ANISH Hernandez Visit Plan Frequency: 1-2x /Week Duration: 4 Weeks Plan: Pt wants to have a home program for neutral spine core stability, L hip strength, LE strength, piriformis stretching. Pt has trouble getting to therapy due to transportation. Subjective Subjective: Pt reports that she went to pain management for L hip pain and pain into knee and down to the foot. She got a shot in the hip and it feels better but the knee is still painful and out side of the hip are painful. She has had back and neck pain for so many years that she is used to it. It has been 20 years since PT and when she felt better she quit doing PT. She has had x-rays from the neck to the LB. She had a CATSCAN from a year ago and Dr Carlos looked at those. He has ordered an MRI. She has no weakness in her L leg. She has some trouble lifting her L knee. She has no N&T in the L leg. She does not sleep well at night due to the pain. She can not take NSAIDS due to diarrhea. She has muscle relaxors and they help her sleep for 4 good hours. She has only been taking them as needed. She can do stairs but has to go slow because of the pain. Pain L hip pain: Pain Intensity (Out of 10): 5 L knee: Pain Intensity (Out of 10): 6 Objective Objective: Gait: Walks with decrease stride length and no trunk rotation Trunk AROM: flexion 100%, Ext 100%, SB B 75% B (increase pain B), Rotation 75% B LE MMT: B hip flex 4/5, knee ext 4/5, knee flex 4/5 all equal B (on the weaker side but equal) L hip abd 3+/5 (increase pain) and R 4-/5 Pt is able to do 3/4 normal ROM bridge with slight tenderness Patella DTR's 2+/3 B -SLR B Prone lying has pressure in LB Prone to RADHA X 5 (pressure in back at firs and then some pain into hip on 3 rd one) L piriformis is tighter than the R Balance/Special Test Scores Oswestry Low Back Score: 23 Goals Goal 1:: I HEP for neutral spine core stability and L hip and knee strength Goal Time Frame: 6-8 Weeks Goal 2:: Be able to sleep better without having as much back and hip pain Goal Time Frame: 6-8 Weeks Goal 3:: Be able to walk with bigger steps without hip and back pain Rehabilitation Potential Rehabilitation Potential: Good Anticipated Interventions Patient/Client Instruction: Educate patient on: Condition and Plan of Care For the Purpose of:: To decrease pain, To increase ROM, To improve nutrient delivery to tissue, To improve muscle performance and motor function, To improve ability to perform ADL's, To increase tolerance to activity/condition/position, To improve performance and independence with ADL's, To decrease level of supervision to perform tasks, To improve ability of physical actions for home/community/work/leisure, To improve gait and locomotor functions, To improve health of tissue, To decrease soft tissue restriction and To increase flexibilit y/ROM Therapeutic Exercise to Include: Strength training, Body mechanics, Postural training, Flexibilty training, Gait and locomotor training, Neuromotor development, Active ROM, Dynamic Lumbar Stabilization and Scapular Strength/Stabilization For the Purpose of:: To decrease pain, To increase ROM, To improve nutrient delivery to tissue, To improve muscle performance and motor function, To improve ability to perform ADL's, To increase tolerance to activity/condition/position, To improve performance and independence with ADL's, To decrease level of supervision to perform tasks, To improve ability of physical actions for home/community/work/leisure, To improve gait and locomotor functions and To increase flexibility/ROM Functional Training to Include: Gait training For the Purpose of:: To improve gait and locomotor functions Manual Therapy Techniques to Include: Passive ROM For the Purpose of:: To increase ROM and To increase flexibility/ROM Text: Thank you for the opportunity to evaluate your patient. For Medicare and Medicare HMO plans, please review the plan of care and approve it. It will need to be FAXED BACK to us at [phone] for Medicare purposes. For Medicare only, by signing this I certify the plan of care. Please let me know if there are questions or concerns regarding this plan of care. Physician Signature: ____Date:
== END 2023-11-01 19:00 | disposition home or self-care (01) ==
LOC: PT 09:30
PROVIDERS: Referring Provider Anesthesiology; Visit Provider Anesthesiology
DX: M47.22 Other spondylosis with radiculopathy, cervical region (principal); M47.816 Spondylosis without myelopathy or radiculopathy, lumbar region; M25.552 Pain in left hip
CPT/HCPCS: 97110; 97162

== ENCOUNTER → 2023-11-07 | Outpatient (CLI) | payer MEDICARE, MEDICAID, SELFPAY ==
--- NOTE | 2023-11-07 10:52 | MRI_ITS ---
ACR Level 3 findings have been noted. An addendum which confirms receipt of the report will follow. EXAM: MR PELVIS WITHOUT INTRAVENOUS CONTRAST CLINICAL INDICATION: L HIP PAIN TECHNIQUE: Multiplanar and multisequence MR images of the pelvis without intravenous contrast. COMPARISON: No relevant prior studies available. FINDINGS: ARTIFACTS: Motion artifact limits assessment. APPENDIX: No evidence of acute appendicitis. INTRAPERITONEAL SPACE: Unremarkable. No ascites or other fluid collection. BLADDER: Unremarkable. OVARIES: Left ovarian simple cyst measuring 2.4 cm. UTERUS/CERVIX: Unremarkable. No mass. Endometrial stripe is normal in thickness and appearance. BONES/JOINTS: There are marrow edema involving the posterolateral femoral head and neck as well as the acetabular roof could represent osteomyelitis. At least moderate left hip joint effusion with synovitis. Moderate to severe degenerative disc disease L5-S1. No suspicious lytic or blastic abnormality. SOFT TISSUES: Left iliopsoas fluid collection (3.9 x 3.1 cm) along the musculotendinous junction of the iliopsoas with edema extending down to the trochanteric attachment of the iliopsoas. No pelvic wall hernia. LYMPH NODES: Unremarkable. No enlarged lymph nodes. MRI/Pelvis (Routine) IMPRESSION: Left hip joint effusion with synovitis which can be seen with septic arthritis. Consider joint aspiration for definitive diagnosis if clinically concerned. There is associated iliopsoas bursitis which communicates with the left hip joint. Possible osteomyelitis involving the left acetabular roof and the femoral head. Electronically Signed: Orlando Short MD at 23:34 EDT ,
== END | disposition home or self-care (01) ==
LOC: MRI 10:48
PROVIDERS: Referring Provider Anesthesiology; Visit Provider Anesthesiology
DX: M25.552 Pain in left hip (principal)
CPT/HCPCS: 72195

== ENCOUNTER 2023-11-08 10:47 | Emergency (ER) | payer MEDICARE, MEDICAID, SELFPAY ==
[2023-11-08 10:47] VITALS: BP 157/95; PULSE 90; RESP 16; TEMP 36.6; O2SAT 100
[2023-11-08 11:08] VITALS: BMI 39.3
--- NOTE | 2023-11-08 11:18 | EKG12_ITS ---
Test Reason : PRE OP Blood Pressure : / mmHG Vent. Rate : 068 BPM Atrial Rate : 068 BPM P-R Int : 146 ms QRS Dur : 082 ms QT Int : 382 ms P-R-T Axes : 012 042 029 degrees QTc Int : 406 ms Normal sinus rhythm Normal ECG Confirmed by ALFRED PARMAR, DAVEY ([id number]), research editor TI MCGARRY ([id number]) on 11/12/2023 1:55:36 PM Referred By: JITENDRA Confirmed By:BARBARA SIMON MD
[2023-11-08 11:29] VITALS: O2SAT 96
[2023-11-08] MEDS: 0.9% Normal Saline (1000mL) 1,000 ML 150 ML IV (11:35)
[2023-11-08] MEDS: Ondansetron 4 MG/2 ML Vial IV (11:35)
[2023-11-08] MEDS: Morphine 4 MG/ML Syringe IV ×2 (11:36→16:08)
--- NOTE | 2023-11-08 11:40 | EDS_ITS ---
HPI History of Present Illness Chief Complaint: Lower Extremity Injury Informant: patient Onset/Context/Timing Onset: Today Narrative Narrative: Patient advised by pain management doctor to present to the emergency room secondary to concern for left hip infection. She reports left hip pain ongoing for several months. She denies any known injury. She had an MRI obtained yesterday that shows a left hip joint effusion with synovitis which can be seen with septic arthritis. There is also concern for possible osteomyelitis involving the left acetabular roof and femoral head. Patient denies having fever or chills. PFSH PFS Medical History HLD (hyperlipidemia) DM type 2 (diabetes mellitus, type 2) HTN (hypertension) History of neck pain Home Medications ?Medication ?Instructions ?Recorded ?Last Taken ?Type cholecalciferol (vitamin D3) 10 10 mcg PO DAILY 07/11/22 Unknown History mcg (400 unit) tablet (Vitamin D3) naproxen 500 mg tablet (Naprosyn) 500 mg PO BID PRN pain #20 tabs 07/11/22 Unknown Rx omega 1-kug-qqw-fish oil 60 mg-90 1 cap PO DAILY 07/11/22 Unknown History mg-500 mg capsule (Fish Oil) dicyclomine 20 mg tablet 20 mg PO BID PRN abdominal pain 10/18/23 Unknown Rx #12 tabs promethazine 25 mg tablet 25 mg PO Q6H PRN nausea and 10/18/23 Unknown Rx vomiting #12 tabs tizanidine 4 mg tablet 2 - 4 mg PO TID PRN PRN muscle 11/08/23 Unknown History spasticity Allergy/AdvReac Type Severity Reaction Status Date / Time Penicillins (PCN) Allergy Hives Verified 11/08/23 10:48 esomeprazole (From Nexium) AdvReac Other Verified 11/08/23 10:48 Surgical History History of tonsillectomy History of foot operation History of bunionectomy History of tubal ligation History of removal of ovarian cyst Social History household members: significant other Smoking Status: Former smoker alcohol intake: current alcohol intake frequency: holidays/special occasions only substance use type: marijuana ROS ROS ED Constitutional Constitutional ED: Denies chills or fever(s) Eyes Eyes: Denies discharge from eye(s) ENT ENT ED: Denies discharge from eye(s), rhinorrhea or sore throat Cardiovascular Cardiovascular: Denies chest pain Respiratory/Chest Respiratory/Chest: Denies cough or dyspnea Gastrointestinal Gastrointestinal: Denies abdominal pain, nausea or vomiting Musculoskeletal Musculoskeletal: Reports extremity pain; Denies back pain Integumentary Denies Abrasions or rash Neurologic Neurologic: Denies headache(s) Psychiatric Psychiatric: Denies anxiety or depression Allergic/Immunologic Allergic/Immunologic ED: Denies lip swelling or urticaria EXAM Physical Exam Const Vital Signs: 11/08/23 10:47 11/08/23 11:29 11/08/23 12:37 Temperature 98 F 98.6 F Temperature Source Temporal Oral Pulse Rate 90 74 Respiratory Rate 16 12 Blood Pressure 157/95 H 138/91 H Blood Pressure Mean 115 106 Pulse Ox 100 96 98 Oxygen Delivery Method Room Air Room Air Room Air 11/08/23 13:58 Temperature 97.3 F L Temperature Source Temporal Pulse Rate 60 Respiratory Rate 18 Blood Pressure 138/91 H Blood Pressure Mean 106 Pulse Ox 98 Oxygen Delivery Method Room Air Positive well nourished and well developed General Appearance ED: well developed HEENT Reports moist mucous membranes Eyes EOMs intact bilaterally Chest Wall inspection of chest normal and palpation of chest normal Resp normal respiratory effort and clear to auscultation bilaterally Cardio regular rate and regular rhythm GI non-tender Palpation: soft Extremity Extremity Narrative: Tenderness outpatient on anterior and lateral left hip. Most comfortable held in slight flexion. Good distal pulses. Neuro oriented x3 Neuro Narrative: Slow purposeful range of motion of the left hip. Psych Mood & Affect: anxious and tearful Skin no rashes or lesions noted MDM MDM MDM Narrative Medical decision making narrative: IV line established. Labwork obtained to evaluate for leukocytosis, anemia, and electrolyte derangement. Blood culture obtained. History & Record Review Discussion w/independent historian: Patient and Family Additional record(s) reviewed:: Prior outpatient record Lab Data Attestation: I reviewed the patient's lab results. Labs: Laboratory Results - last 24 hr 11/08/23 11/08/23 11:20 11:40 WBC 9.1 RBC 4.78 Hgb 14.7 Hct 43.8 MCV 91.6 MCH 30.8 MCHC 33.6 RDW Std Deviation 44.5 H RDW Coeff of Joseph 13.2 Plt Count 264 MPV 10.2 Immature Gran % (Auto) 0.400 Neut % (Auto) 75.4 H Lymph % (Auto) 16.3 L Hodgeman % (Auto) 5.0 Eos % (Auto) 2.2 Baso % (Auto) 0.7 Absolute Neuts (auto) 6.8 Absolute Lymphs (auto) 1.48 Nucleated RBC % 0 PT 13.0 INR 1.0 APTT 29.8 Sodium 136 Potassium 3.6 Chloride 105 Carbon Dioxide 25.0 Anion Gap 6 BUN 12 Creatinine 0.92 Estim Creat Clear Calc 83.08 Est GFR (MDRD) Af Amer 82 Est GFR (MDRD) Non-Af 67 BUN/Creatinine Ratio 13.0 Glucose 126 H Lactic Acid 1.2 Calcium 9.4 Total Bilirubin 0.70 AST 17 ALT 15 Alkaline Phosphatase 69 Total Protein 7.5 Albumin 3.6 Globulin 3.9 Albumin/Globulin Ratio 0.9 EKG Initial EKG: Attestation: I personally reviewed and interpreted this EKG as follows: Interpretation: Sinus Rhythm (Sinus at 68 with no acute ischemia.) Treatment and Re-Evaluation :: CBC was normal white count 9.1 with 75% neutrophils. Hemoglobin is 14.7. Coags unremarkable. Chemistry studies significant only for glucose of 126. LFTs are unremarkable. MRI from yesterday was reviewed. There is fluid in the left hip joint. There are changes concerning for osteomyelitis of the acetabular roof as well as the femoral head. Patient was sent to radiology for fluoroscopy guided aspiration of the left hip to send fluid for testing. No fluid was able to be withdrawn. Patient was then started on antibiotics, vancomycin and Rocephin. We do not have orthopedic coverage here today and this was discussed with the patient. Patient has been accepted in transfer at [facility] in [place]. Discharge Plan Triage Chief Complaint: Lower Extremity Injury ED Provider: Janelle Mckinley Dx/Rx/DC Orders Clinical Impression: Osteomyelitis Prescriptions: No Action cholecalciferol (vitamin D3) [Vitamin D3] 10 mcg (400 unit) tablet 10 mcg PO DAILY omega 3-syj-oew-fish oil [Fish Oil] 60-90-500 mg capsule 1 cap PO DAILY naproxen [Naprosyn] 500 mg tablet 500 mg PO BID PRN (Reason: pain) Qty: 20 0RF promethazine 25 mg tablet 25 mg PO Q6H PRN (Reason: nausea and vomiting) Qty: 12 0RF dicyclomine 20 mg tablet 20 mg PO BID PRN (Reason: abdominal pain) Qty: 12 0RF tizanidine 4 mg tablet 2 - 4 mg PO TID PRN PRN (Reason: muscle spasticity) Primary Care Provider: Care Physician,No Primary Referrals: Care Physician,No Primary [Primary Care Provider] - Print Language: Occitan Disposition Disposition: Acute Care Hospital Discharge Location: [facility]
[2023-11-08 11:45] LABS: Absolute Lymphocyte Count 1.48 X10^3/uL (0.83-4.51); Absolute Neutrophil Count 6.8 X10^3/uL (2.0-7.7); Basophil# 0.06 X10^3/uL; Basophil% 0.7 % (0-1); Eosinophils% 2.2 % (0-5); Hematocrit 43.8 % (37-47); Hemoglobin 14.7 g/dL (12.0-15.0); Lymphocyte # 1.48 X10^3/ul (0.83-4.51); Lymphocyte % 16.3 % (19-41); Mean Corp Hgb Conc 33.6 g/dL (32-36); Mean Corpuscular Hgb 30.8 pg (27.0-32.0); Mean Corpuscular Volume 91.6 fL (81-99); Mean Platelet Vol. 10.2 fl (6.2-12.0); Monocyte# 0.45 X10^3/uL; NRBC Flagged by Analyzer 0 % (0-5); Neutrophil # 6.84 X10^3/uL (2.7-7.7); Neutrophil % 75.4 % (47-70); Platelet Count 264 K/mm3 (150-450); RBC Distribution Width CV 13.2 % (11.6-14.6); RBC Distribution Width SD 44.5 fl (35.1-43.9); Red Blood Count 4.78 M/mm3 (4.2-5.4); White Blood Count 9.1 K/mm3 (4.4-11.0)
[2023-11-08 11:59] LABS: Partial Thromboplast Time 29.8 Seconds (24.1-36.2)
[2023-11-08 12:10] LABS: Lactic Acid 1.2 mmol/L (0.4-1.9)
[2023-11-08 12:11] LABS: ALB/GLOB Ratio 0.9 RATIO (0.9-2.4); AST(SGOT) 17 U/L (15-37); Alanine Aminotransfer ALT/SGPT 15 U/L (13-56); Albumin, Serum 3.6 g/dL (3.2-5.0); Alkaline Phosphatase 69 U/L (45-117); Anion Gap 6 (5-15); BUN 12 mg/dL (7-18); Calcium,Total 9.4 mg/dL (8.5-10.1); Chloride 105 mmol/L (98-107); Creatinine, Serum 0.92 mg/dL (0.55-1.02); EST Glomerular Filtration Rate 67 mL/min (>60); Est Glom Filt Rate - Afr Amer 82 mL/min (>60); Estimated Creatinine Clearance 83.08 ml/min; Globulin 3.9 g/dL (2.2-4.2); Glucose 126 mg/dL (74-106); Potassium 3.6 mmol/L (3.5-5.1); Protein, Total 7.5 g/dL (6.4-8.2); Sodium Level 136 mmol/L (136-145)
[2023-11-08 12:37] VITALS: BP 138/91; PULSE 74; RESP 12; TEMP 37; O2SAT 98
--- NOTE | 2023-11-08 13:30 | PCM.OP.PRO ---
Procedure Report Date of Procedure: 11/08/23 Assessment & Plan Assessment/Plan (1) Left hip pain: PLAN: PROCEDURE: Fluoroscopic guided left hip aspiration ORDERING PROVIDER: Dr. Janelle Luo INDICATION: Female, 53 years old. Fluid collection on MRI of left hip. PROVIDER: DOMINIK Ny FLUOROSCOPY TIME (if supplied): 1 minutes/26 seconds. 33.8 mGy CONSENT: The procedure as well as the benefits and possible complications including infection and bleeding were explained to the patient. Informed consent was obtained. TECHNIQUE: All elements of maximal sterile barrier technique followed. The patient was in the supine position. The overlying skin was prepped and draped in the usual sterile fashion. Following local anesthetic application and direct fluoroscopic guidance, a 22-gauge spinal needle was placed into the left hip joint. 10 cc of Isovue-300 was used for confirmation of needle guidance into the left hip joint. However, 0 cc of fluid was able to be aspirated. A dressing was placed on the aspiration site. The patient tolerated the procedure well. Fluid was sent to the laboratory for analysis. IMPRESSION: 1. Successful fluoroscopic guided needle placement in left hip joint for attempted aspiration. Procedures Radiology Radiology Xray Procedures: [id number] Inj Asp major Joint - Hip, Knee Multi Select Codes Radiology Rad Xray Procedures: [id number] Fluoroscopic guidance for needle placement
[2023-11-08 13:58] VITALS: BP 138/91; PULSE 60; RESP 18; TEMP 36.3; O2SAT 98
[2023-11-08] MEDS: Ceftriaxone 2 GM in 0.9% Normal Saline (50mL MB+) 50 ML IV (14:08)
[2023-11-08] MEDS: Lidocaine 2% (5ml sdv) 5 ML VIAL.MPF INFILT (14:11)
[2023-11-08] MEDS: Vancomycin HCl 1,500 MG in 0.9% Normal Saline (500mL Bag) 500 ML 250 MG IV (14:53)
[2023-11-08 16:00] VITALS: BP 135/79; O2SAT 94
[2023-11-08] MEDS: LORazepam 2 MG/ML Syringe 0.5 MG IV (16:23)
[2023-11-08 17:12] VITALS: BP 140/98; PULSE 66; RESP 18; TEMP 36.7; O2SAT 97
== END 2023-11-08 17:24 | disposition short-term general hospital (02) ==
PROVIDERS: Emergency Provider Emergency Medicine; Visit Provider Emergency Medicine
DX: E11.69 Type 2 diabetes mellitus with other specified complication (principal); M86.8X5 Other osteomyelitis, thigh; Z53.8 Procedure and treatment not carried out for other reasons; I10 Essential (primary) hypertension; E78.5 Hyperlipidemia, unspecified; Z79.899 Other long term (current) drug therapy; Z87.891 Personal history of nicotine dependence
CPT/HCPCS: 20610; 77002; 80053; 83605; 85025; 85610; 85730; 87040; 93005; 96365; 96366; 96367; 96375; 96376; 99285; J7030; J7040; Q9967; A4216; J0696; J2405

== ENCOUNTER → 2024-01-08 | Outpatient (CLI) | payer MEDICARE, MEDICAID, SELFPAY ==
[2024-01-08 15:53] LABS: Absolute Lymphocyte Count 2.35 X10^3/uL (0.83-4.51); Absolute Neutrophil Count 7.7 X10^3/uL (2.0-7.7); Basophil# 0.07 X10^3/uL; Basophil% 0.6 % (0-1); Eosinophil# 0.19 X10^3/uL; Eosinophils% 1.7 % (0-5); Hematocrit 42.6 % (37-47); Hemoglobin 13.9 g/dL (12.0-15.0); Lymphocyte # 2.35 X10^3/ul (0.83-4.51); Lymphocyte % 21.5 % (19-41); Mean Corp Hgb Conc 32.6 g/dL (32-36); Mean Corpuscular Volume 94.9 fL (81-99); Mean Platelet Vol. 10.5 fl (6.2-12.0); Monocyte# 0.57 X10^3/uL; Monocyte% 5.2 % (0-10); NRBC Flagged by Analyzer 0 % (0-5); Neutrophil # 7.68 X10^3/uL (2.7-7.7); Neutrophil % 70.5 % (47-70); Platelet Count 298 K/mm3 (150-450); RBC Distribution Width CV 14.1 % (11.6-14.6); RBC Distribution Width SD 49.5 fl (35.1-43.9); Red Blood Count 4.49 M/mm3 (4.2-5.4); White Blood Count 10.9 K/mm3 (4.4-11.0)
[2024-01-08 16:20] LABS: CRP < 2.90 mg/L (0.0-3.0); Uric Acid 6.7 mg/dL (2.6-6.0)
[2024-01-08 16:23] LABS: Erythrocyte Sedimentation Rate 20 mm/hr (0-30)
== END | disposition home or self-care (01) ==
LOC: MTLAB 13:40
PROVIDERS: Referring Provider Orthopaedic Surgery; Visit Provider Orthopaedic Surgery
DX: Z01.818 Encounter for other preprocedural examination (principal)
CPT/HCPCS: 36415; 83605; 84550; 85025; 85652; 86140

== ENCOUNTER → 2024-01-23 | Outpatient (CLI) | payer MEDICARE, MEDICAID, SELFPAY ==
[2024-01-23 13:51] LABS: Amphetamine Urine VISTA NEGATIVE (<1000 ng/mL); Barbiturate Urine VISTA NEGATIVE (< 200 ng/mL); Benzodiazepine Urine VISTA NEGATIVE (< 200 ng/mL); Cocaine Urine VISTA NEGATIVE (< 300 ng/mL); Ecstacy Urine VISTA NEGATIVE (< 500 ng/mL); Methadone Urine VISTA NEGATIVE (< 300 ng/mL); PCP Urine VISTA NEGATIVE (< 25 ng/mL); THC Urine VISTA POSITIVE (< 50 ng/mL); Vista UDS pH Range 5
== END | disposition home or self-care (01) ==
PROVIDERS: Referring Provider Anesthesiology; Visit Provider Anesthesiology
DX: F11.20 Opioid dependence, uncomplicated (principal)
CPT/HCPCS: 80307

== ENCOUNTER → 2024-03-20 | Outpatient (CLI) | payer MEDICARE, MEDICAID, SELFPAY ==
[2024-03-20 15:36] LABS: Uric Acid 4.1 mg/dL (2.6-6.0)
== END | disposition home or self-care (01) ==
LOC: MTLAB 13:52
PROVIDERS: PCP Nurse Practitioner Family; Referring Provider Nurse Practitioner Family; Visit Provider Nurse Practitioner Family
DX: M10.9 Gout, unspecified (principal)
CPT/HCPCS: 36415; 84550

== ENCOUNTER → 2024-04-29 | Outpatient (CLI) | payer MEDICARE, MEDICAID, SELFPAY ==
[2024-04-29 12:36] LABS: Amphetamine Urine VISTA NEGATIVE (<1000 ng/mL); Barbiturate Urine VISTA NEGATIVE (< 200 ng/mL); Benzodiazepine Urine VISTA NEGATIVE (< 200 ng/mL); Cocaine Urine VISTA NEGATIVE (< 300 ng/mL); Ecstacy Urine VISTA NEGATIVE (< 500 ng/mL); Methadone Urine VISTA NEGATIVE (< 300 ng/mL); PCP Urine VISTA NEGATIVE (< 25 ng/mL); THC Urine VISTA POSITIVE (< 50 ng/mL); Vista UDS pH Range 7
== END | disposition home or self-care (01) ==
PROVIDERS: PCP Nurse Practitioner Family; Referring Provider Anesthesiology; Visit Provider Anesthesiology
DX: F11.20 Opioid dependence, uncomplicated (principal)
CPT/HCPCS: 80307

== ENCOUNTER → 2024-07-31 | Outpatient (CLI) | payer MEDICARE, MEDICAID, SELFPAY ==
[2024-07-31 10:10] LABS: Absolute Lymphocyte Count 2.64 X10^3/uL (0.83-4.51); Absolute Neutrophil Count 7.2 X10^3/uL (2.0-7.7); Basophil# 0.06 X10^3/uL; Basophil% 0.6 % (0-1); Eosinophil# 0.14 X10^3/uL; Eosinophils% 1.3 % (0-5); Hemoglobin 14.1 g/dL (12.0-15.0); Lymphocyte # 2.64 X10^3/ul (0.83-4.51); Lymphocyte % 24.8 % (19-41); Mean Corp Hgb Conc 33.6 g/dL (32-36); Mean Corpuscular Hgb 31.5 pg (27.0-32.0); Mean Platelet Vol. 10.3 fl (6.2-12.0); Monocyte# 0.57 X10^3/uL; Monocyte% 5.4 % (0-10); NRBC Flagged by Analyzer 0 % (0-5); Neutrophil # 7.18 X10^3/uL (2.7-7.7); Neutrophil % 67.4 % (47-70); Platelet Count 302 K/mm3 (150-450); RBC Distribution Width CV 14.7 % (11.6-14.6); RBC Distribution Width SD 51.2 fl (35.1-43.9); Red Blood Count 4.47 M/mm3 (4.2-5.4); White Blood Count 10.6 K/mm3 (4.4-11.0)
[2024-07-31 11:00] LABS: ALB/GLOB Ratio 1.5 RATIO (0.9-2.4); AST(SGOT) 21 U/L (<=31); Alanine Aminotransfer ALT/SGPT 14 U/L (<=34); Albumin, Serum 4.4 g/dL (3.5-5.0); Alkaline Phosphatase 68 U/L (35-104); Anion Gap 12 (5-15); BUN 12 mg/dL (4-19); BUN/Creat Ratio 16.4 RATIO (10-20); Calcium,Total 9.4 mg/dL (7.6-11.0); Carbon Dioxide 21.1 mmol/L (21.0-32.0); Chloride 106 mmol/L (98-108); Cholesterol 238 mg/dL (<=200); Creatinine, Serum 0.71 mg/dL (0.70-1.20); EST Glomerular Filtration Rate 101 (>60); Globulin 2.8 g/dL (2.2-4.2); Glucose 96 mg/dL (70-99); High Density Lipoprotein 76 mg/dL; Low Density Lipoprotein Calc. 147 mg/dL; Protein, Total 7.2 g/dL (5.9-8.4); Sodium Level 138 mmol/L (133-145); Total Bilirubin 0.18 mg/dL (0.00-1.30); Triglycerides 78 mg/dL; Uric Acid 4.4 mg/dL (2.6-6.0); Very Low Density Lipoprotein 16 mg/dL (5-40); cholesterol:hdl ratio screen 3.14
[2024-07-31 11:16] LABS: Vitamin D,25 Hydroxy 42.4 ng/mL (30-100)
== END | disposition home or self-care (01) ==
LOC: LAB 08:57
PROVIDERS: PCP Nurse Practitioner Family; Referring Provider Nurse Practitioner Family; Visit Provider Nurse Practitioner Family
DX: Z00.00 Encounter for general adult medical examination without abnormal findings (principal); E55.9 Vitamin D deficiency, unspecified; R53.83 Other fatigue; M10.9 Gout, unspecified
CPT/HCPCS: 36415; 80053; 80061; 82306; 84439; 84550; 85025

== ENCOUNTER → 2024-08-08 | Outpatient (CLI) | payer MEDICARE, MEDICAID, SELFPAY ==
--- NOTE | 2024-08-08 09:37 | MRI_ITS ---
EXAM: MRI left hip CLINICAL HISTORY: Left hip pain COMPARISON: None TECHNIQUE: Multiplanar spin echo aneurysms images of the left hip and a [place] strength magnet FINDINGS: No abnormal soft tissue mass, or lymphadenopathy. No abnormality of the bony pelvis. Normal biceps femoris origin. Normal iliopsoas insertion. Normal hamstring origin. Severe left hip arthrosis with full-thickness chondral loss, osteophyte formation, and subchondral edema of the femoral head. Small joint effusion with a 4 cm anteriorly extending capsular synovial cyst or paralabral cyst. MRI/Lower Ext Joint Only (Routine) IMPRESSION: Severe osteoarthrosis with a 4 cm anteriorly extending capsular synovial cyst o r paralabral cyst. Reading Location: [facility]
== END | disposition home or self-care (01) ==
LOC: MRI 09:28
PROVIDERS: PCP Nurse Practitioner Family; Referring Provider Anesthesiology; Visit Provider Anesthesiology
DX: M25.552 Pain in left hip (principal)
CPT/HCPCS: 73721

== ENCOUNTER → 2024-08-17 | Outpatient (CLI) | payer MEDICARE, MEDICAID, SELFPAY ==
--- NOTE | 2024-08-17 15:28 | BI_ITS ---
EXAM: SCRN MAMM (CAD)W/[place] BILAT DATE: 08/17/2024 CLINICAL HISTORY: F, Age 54 y/o , SCREENING BREAST CANCER RISK ASSESSMENT: Not reported TECHNIQUE: Bilateral screening digital breast tomosynthesis with 2D and 3D images. Computer aided detection. COMPARISON: Prior exam(s) were compared FINDINGS: TISSUE DENSITY: The breast tissue is composed of scattered area of fibroglandular density. Bilateral Breast Mammographic Findings: No suspicious masses, calcifications or other abnormalities are identified. BI/SCRN MAMM (CAD)W/[place] BILAT IMPRESSION: OVERALL FINAL ASSESSMENT: BIRADS 1 NEGATIVE RECOMMENDATION: Routine annual follow-up in 1 Year A letter with findings and recommendations will be mailed to the patient. Reading Location: [id number]
== END | disposition home or self-care (01) ==
PROVIDERS: PCP Nurse Practitioner Family; Referring Provider Nurse Practitioner Family; Visit Provider Nurse Practitioner Family
DX: Z12.31 Encounter for screening mammogram for malignant neoplasm of breast (principal)
CPT/HCPCS: 77063; 77067

== ENCOUNTER → 2025-01-01 | Outpatient (CLI) | payer MEDICARE, MEDICAID, SELFPAY ==
[2025-01-08 21:07] LABS: Age Gdln ACOG Testing 30-65 (.); HPV APTIMA, High Risk Positive (Negative); HPV Genotype 16, Aptima Negative (Negative); HPV Genotype 18,45 Aptima Negative (Negative)
== END | disposition home or self-care (01) ==
PROVIDERS: PCP Nurse Practitioner Family; Referring Provider Nurse Practitioner Family; Visit Provider Nurse Practitioner Family
DX: Z12.4 Encounter for screening for malignant neoplasm of cervix (principal)
CPT/HCPCS: 88175; G0145